=== PATIENT | female | born 1945 | race Caucasian/White ===

== ENCOUNTER → 2016-08-10 | Outpatient (REF) | payer MEDICARE, BC ==
[2016-08-10 14:53] LABS: IMMUNOGLOBULIN G 451 MG/DL (681-1648); IMMUNOGLOBULIN M 24.3 MG/DL (40-230); TOTAL PROTEIN 5.6 GM/DL (6.4-8.2)
[2016-08-12 00:06] LABS: FREE KAPPA LIGHT CHAINS SERUM 25.12 mg/L (3.30-19.40); FREE LAMBDA LIGHT CHAINS SERUM 28.45 mg/L (5.71-26.30); KAPPA/LAMBDA RATIO SERUM 0.88 (0.26-1.65)
[2016-08-12 13:59] LABS: ALBUMIN 3.52 GM/DL (3.29-5.55); ALBUMIN % 62.8 % (55.8-66.1)
== END ==
LOC: M LAB REF 13:21
PROVIDERS: ATTEND Internal Medicine Medical Oncology
DX: C90.00 Multiple myeloma not having achieved remission (principal)

== ENCOUNTER → 2016-10-12 | Outpatient (CLI) | payer MEDICARE, BC ==
[~2016-10-12] MED LIST: LIDOCAINE 2% MDV 20 ML VIAL As Ordered ONE
--- NOTE | 2016-10-12 17:25 | REPKIM ---
CLINICAL HISTORY: Patient with ESRD presents with a tunneled right IJ hemodialysis catheter. Patient has functioning left upper arm AVF. The referring nephrology service has requested to remove the TDC because it is no longer needed. PROCEDURE PERFORMED: Right IJ Tunneled Dialysis Catheter Removal INTERVENTIONALIST: Dr. Juanjose Cruz CONSENT: The risks, benefits and alternatives to the procedure were explained to the patient and informed written consent was obtained. MEDICATION: Local Lidocaine 2% EBL: 5 mL PROCEDURE/FINDINGS: The patient was brought to the interventional radiology suite and placed in the supine position with head of bed elevated. Time out procedure was performed. The area was prepped and draped in a usual sterile fashion. Local anesthesia was administered subcutaneously to the catheter exit site using 2% Lidocaine. The catheter cuff was bluntly dissected free from the surrounding soft tissues. The catheter was removed, inspected and confirmed to be removed in its entirety. Hemostasis was achieved by manual compression. A sterile dressing was applied. The patient tolerated the procedure well with no immediate complications. No imaging was used. Dr. Cruz was present. IMPRESSION: Tunneled dialysis catheter removal as discussed above. cc: Petey Mccallum MD MTDD
== END | disposition home or self-care (01) ==
LOC: M IRPRO 12:09
DX: Z45.2 Encounter for adjustment and management of vascular access device (principal); N18.6 End stage renal disease

== ENCOUNTER → 2016-10-28 | Outpatient (CLI) | payer MEDICARE, BC ==
--- NOTE | 2016-10-29 07:49 | RADONC ---
RADIATION ONCOLOGY CONSULTATION NOTE: DATE: 10/28/2016 CHART NO: [id number] DIAGNOSIS: Multiple myeloma. ECOG PERFORMANCE STATUS: 1 Ms. Morton is a very pleasant 71-year-old white female with the diagnosis of multiple myeloma who is presenting to us today for consideration of palliative radiation therapy to her lower back. HISTORY OF PRESENT ILLNESS: The patient was in her usual state of health but was found to have developed a 10-pound weight loss and fatigue in the spring. In December of 2015, she was found to be in acute renal failure with a creatinine over 10. Subsequent workup including a bone marrow biopsy revealed a monoclonal protein and plasma cell involvement. She was diagnosed with multiple myeloma and has started treatment with Velcade. She developed some peripheral neuropathy in March 2016 and Velcade was discontinued. She has since been treated with Revlimid and dexamethasone. The patient is continuing with dialysis. More recently she began developing some low back pain and a skeletal survey done at [facility] on 10/07/2016 showed lytic lesions at the L1 and L4 vertebral bodies. There are other lytic lesions throughout the skeletal system. She is now being referred for consideration of palliative radiation therapy. PAST MEDICAL HISTORY: The patient's past medical history is positive for hypertension and of course the above-mentioned kidney failure. She also has some hypothyroidism. ALLERGIES: The patient is allergic to SOMA. SOCIAL HISTORY: The patient does not smoke cigarettes nor abuse alcohol. FAMILY HISTORY: The patient's family history is positive for a mother with lung cancer and a father with kidney cancer. REVIEW OF SYSTEMS: The patient's review of systems is positive for a 75 pound weight loss over the past 6 months to a year. She has pain in the low back and left hip. Her review of systems is otherwise noncontributory. She denies nausea, vomiting, fevers, chills, night sweats, diplopia, headaches, anxiety or depression, anorexia, weight loss, visual disturbances, chest pain, urinary or bowel difficulties, bone pain, or neurological problems. PHYSICAL EXAMINATION: The patient is a well-developed, well-nourished female in no acute distress. HEENT exam is normocephalic, atraumatic. Extraocular movements are intact. There is no palpable cervical, supraclavicular, infraclavicular, axillary, or inguinal lymphadenopathy present. Lungs are clear to auscultation and percussion. Heart has a regular rate and rhythm. Abdomen is benign with no hepatosplenomegaly, masses, or tenderness. Skeletal examination reveals no tenderness to pressure or percussion of the bony skeleton. Extremities reveal no clubbing, cyanosis, or edema. Neurologic exam is grossly intact, as is the remainder of the physical examination. ASSESSMENT: Ms. Morton is presenting to us today for consideration of palliative radiation therapy to her spinal column from multiple myeloma. Clearly the patient is a candidate for this treatment and I have so informed her. I have discussed with the patient in detail the potential benefits as well as possible acute and chronic sequelae of external beam radiation therapy. We have discussed logistics of treatment planning, simulation and subsequent fractionated daily radiation treatments. I have scheduled the patient for the next available simulation slot and radiation treatments will begin subsequently. Thank you for allowing us to participate in the care of this very pleasant woman. If I could be of any further assistance or provide you with any information, please feel free to contact me anytime. As always warm regards, cc: Juliocesar Hernandez MD *Dr. Killian Balbuena, [facility] *Vinny Roy MD
--- NOTE | 2016-11-02 09:16 | RADONC ---
RADIATION ONCOLOGY SIMULATION NOTE DATE: 11/02/2016 CHART NUMBER: [id number]. Ms. Morton was taken to the CT scan for CT simulation of her spinal field. CT was accomplished without difficulty or discomfort. Radiation treatment planning is underway and radiation treatments will begin subsequently. An immobilization device was created and will be used throughout the course of treatment. It was also done without difficulty or discomfort. I was physically present throughout the course CT simulation.
== END ==
LOC: M ONCR 10:13
PROVIDERS: ATTEND Radiology Radiation Oncology
DX: C90.00 Multiple myeloma not having achieved remission (principal)

== ENCOUNTER 2016-11-02 10:26 | Outpatient (RCR) | payer MEDICARE, BC | END 2016-11-05 | LOC: M ONCR 10:26 | PROVIDERS: ATTEND Radiology Radiation Oncology | DX: C50.411 Malignant neoplasm of upper-outer quadrant of right female breast (principal) ==

== ENCOUNTER → 2016-11-02 | Outpatient (CLI) | payer MEDICARE, BC | LOC: M RAD 08:52 | PROVIDERS: ATTEND Radiology Radiation Oncology | DX: C90.00 Multiple myeloma not having achieved remission (principal) ==

== ENCOUNTER 2016-11-08 08:03 | Outpatient (RCR) | payer MEDICARE, BC ==
--- NOTE | 2016-11-16 06:30 | RADONC ---
RADIATION ONCOLOGY PROGRESS NOTE DATE: 11/15/2016 CHART NUMBER: [id number]. PROGRESS NOTE: Ms. Morton is presently a dose of 600 cGy to her lower spine and was last treated on 11/12/2016. She was not treated a secondary to machine breakdown. The patient reports today that she has been tolerating her treatments quite well with no complaints related to her radiation therapy. She is having no new back discomfort except on exam when she gets off the table. REVIEW OF SYSTEMS: The patient's review of systems is positive for continued back pain but is otherwise noncontributory. Denies nausea, vomiting, fevers, chills, night sweats, diplopia, headaches, anxiety or depression, anorexia, weight loss, visual disturbances, chest pain, urinary or bowel difficulties, bone pain, or neurological problems. PHYSICAL EXAMINATION: The patient's skin is in good condition with no evidence of radiation change present. There is no moist or dry desquamation. The remainder of her physical exam remains unchanged. Ms. Morton is tolerating treatments quite well and radiation will continue as scheduled.
--- NOTE | 2016-11-22 14:09 | RADONC ---
RADIATION ONCOLOGY PROGRESS NOTE DATE: 11/22/2016 CHART NUMBER: [id number] Ms. Morton is presently at a dose of 2100 cGy to her spine and is tolerating treatments quite well at this point with no complaints related to her radiation therapy. She has no increased back pain. She continues to have some back pain. The patient's review of systems is positive for back pain but is otherwise noncontributory. Denies nausea, vomiting, fevers, chills, night sweats, diplopia, headaches, anxiety or depression, anorexia, weight loss, visual disturbances, chest pain, urinary or bowel difficulties, bone pain, or neurological problems. PHYSICAL EXAMINATION: The patient's skin is in good condition with no evidence of radiation change present. There is no moist or dry desquamation. The remainder of her physical exam remains unchanged. Ms. Morton is tolerating treatments quite well and radiation will continue as scheduled.
--- NOTE | 2016-11-24 07:40 | RADONC ---
RADIATION ONCOLOGY TREATMENT SUMMARY DATE: 11/23/2016 CHART NUMBER: [id number] DIAGNOSIS: Multiple myeloma. ECOG PERFORMANCE STATUS: 1. TREATMENT SUMMARY: Ms. Morton is a very pleasant 71-year-old white female with the diagnosis of multiple myeloma who presented to us for consideration of palliative radiation therapy to her low back. We treated the patient to her low back from the level of T12-L5 for a total dose of 2400 cGy delivered in eight fractions of 300 cGy each over 12 elapsed days from 11/11/2016 through 11/23/2016. The patient's spine was treated on a linear accelerator utilizing an 18 MV photon beam via a single posterior field prescribed to a depth of 8 cm. Ms. Morton tolerated her treatments quite well and was able to complete therapy as prescribed without interruption. I have scheduled the patient to see me again in 1 month for further followup. She will also continue to be followed by her other physicians as well. cc: Juliocesar Hernandez MD *Dr. Killian Balbuena, [facility] *Vinny Roy MD
== END 2016-12-05 ==
LOC: M ONCR 08:03
PROVIDERS: ATTEND Radiology Radiation Oncology
DX: C90.00 Multiple myeloma not having achieved remission (principal)

== ENCOUNTER → 2016-11-09 | Outpatient (REF) | payer MEDICARE, BC ==
[2016-11-09 14:26] LABS: IMMUNOGLOBULIN A 52.7 MG/DL (70-400); IMMUNOGLOBULIN G 373 MG/DL (681-1648); TOTAL PROTEIN 5.2 GM/DL (6.4-8.2)
[2016-11-09 14:29] LABS: IMMUNOGLOBULIN M 18.2 MG/DL (40-230)
[2016-11-10 12:58] LABS: ALBUMIN 3.36 GM/DL (3.29-5.55); ALBUMIN % 64.6 % (55.8-66.1); GAMMA GLOBULIN % 7.7 % (11.1-18.8)
[2016-11-11 00:08] LABS: FREE KAPPA LIGHT CHAINS SERUM 24.09 mg/L (3.30-19.40); FREE LAMBDA LIGHT CHAINS SERUM 25.12 mg/L (5.71-26.30); KAPPA/LAMBDA RATIO SERUM 0.96 (0.26-1.65)
== END ==
LOC: M LAB REF 12:56
PROVIDERS: ATTEND Internal Medicine Medical Oncology
DX: C90.00 Multiple myeloma not having achieved remission (principal)

== ENCOUNTER → 2016-11-16 | Outpatient (CLI) | payer MEDICARE, BC ==
--- NOTE | 2016-11-16 13:20 | REP ---
Right lower extremity Duplex Doppler venous ultrasound: Real time compression and duplex Doppler interrogation of the right lower extremity deep venous system is performed. The right common femoral, superficial femoral and popliteal veins are fully compressible with transducer pressure and demonstrate normal spontaneous and phasic flow, without evidence of deep venous thrombosis. Impression: No evidence of deep venous thrombosis of the right lower extremity femoral popliteal venous system. Signed by Main Segundo MD 11/16/2016 01:13 P
== END ==
LOC: M RAD 12:21
PROVIDERS: ATTEND Internal Medicine Medical Oncology
DX: M79.604 Pain in right leg (principal)

== ENCOUNTER → 2016-12-07 | Outpatient (REF) | payer MEDICARE, BC | LOC: M LAB REF 17:04 | PROVIDERS: ATTEND Internal Medicine Medical Oncology | DX: C90.00 Multiple myeloma not having achieved remission (principal) ==

== ENCOUNTER → 2016-12-07 | Outpatient (REF) | payer MEDICARE, BC ==
[2016-12-07 19:41] LABS: TOTAL PROTEIN 5.4 GM/DL (6.4-8.2)
[2016-12-10 11:01] LABS: ALBUMIN 3.59 GM/DL (3.29-5.55); ALBUMIN % 66.5 % (55.8-66.1); GAMMA GLOBULIN % 6.9 % (11.1-18.8)
== END ==
LOC: M LAB REF 17:04
PROVIDERS: ATTEND Internal Medicine Medical Oncology
DX: C43.9 Malignant melanoma of skin, unspecified (principal)

== ENCOUNTER → 2016-12-22 | Outpatient (CLI) | payer MEDICARE, BC ==
--- NOTE | 2016-12-23 06:36 | RADONC ---
RADIATION ONCOLOGY FOLLOWUP NOTE DATE: 12/22/2016 CHART NUMBER: [id number] DIAGNOSIS: Multiple myeloma. ECOG PERFORMANCE STATUS: 1. FOLLOWUP NOTE: Ms. Morton is a very pleasant 71-year-old white female with the diagnosis of multiple myeloma who is presenting to us today for routine followup visit 1 month post completion of palliative radiation therapy to her spine. The patient presents today reporting that she is doing quite well with no complaints at this time related to her radiation therapy. She reports no bone pain. She continues with her dialysis secondary to renal failure. The patient's review of systems is positive for dialysis requirement but is otherwise noncontributory. Denies nausea, vomiting, fevers, chills, night sweats, diplopia, headaches, anxiety or depression, anorexia, weight loss, visual disturbances, chest pain, urinary or bowel difficulties, bone pain, or neurological problems. PHYSICAL EXAMINATION: The patient is a well-developed, well-nourished 71-year-old in no acute distress. HEENT exam is normocephalic, atraumatic. Extraocular movements are intact. There is no palpable cervical, supraclavicular, infraclavicular, axillary, or inguinal lymphadenopathy present. Lungs are clear to auscultation and percussion. Heart has a regular rate and rhythm. Abdomen is benign with no hepatosplenomegaly, masses, or tenderness. Skeletal examination reveals no tenderness to pressure or percussion of the bony skeleton. Extremities reveal no clubbing, cyanosis, or edema. Neurologic exam is grossly intact, as is the remainder of the physical examination. ASSESSMENT: The patient is clinically stable at this point with no remaining pain. In light of the fact that she is being followed and managed so closely by her medical oncologist, Dr. Hernandez, I have discharged her from our followup except on a p.r.n. basis. cc: Juliocesar Hernandez MD *Dr. Killian Balbuena, [facility] *Vinny Roy MD
== END ==
LOC: M ONCR 14:29
PROVIDERS: ATTEND Radiology Radiation Oncology
DX: C90.00 Multiple myeloma not having achieved remission (principal)

== ENCOUNTER → 2018-11-30 | Outpatient (REF) | payer MEDICARE, BC ==
[~2018-11-30] MED LIST changes: +AMLO5TAB6 PO; +ASPI81TA26 PO; +B-122500 PO; +CINA30TA4 PO; +DULO30CA47 PO; +IBUP200C25 PO; +KION15SU PO; +LEVO100T5 PO; -LIDOCAINE 2% MDV 20 ML VIAL As Ordered ONE; +RENATAB6 PO; +ROCA0.25 PO; +ROPI0.253 PO; +SEVE800T3 PO; +TUMS750C22 PO
--- NOTE | 2018-11-30 15:42 | REP ---
Reading of outside studies: Skeletal survey: 20 views from [facility] dated November 15, 2018. History: Followup multiple myeloma. Comparison radiographs [facility] January 10, 2016. There is also a comparison skeletal survey from October 07, 2016 done at [facility]. Skeletal findings. There is no bony calvarial lytic lesion. Mandible appears intact. The thoracic and lumbar vertebral body heights are preserved. No definite vertebral lesion is seen. There is a radiolucent area in the left ischium on pelvic image but this is unchanged from October 07, 2016. No definite new femur lesion is seen on either side. No new humeral lesion is seen. Impression: No new myelomatous lesion is appreciated. Electronically Signed by Laith Sanchez MD 11/30/2018 04:26 P
== END ==
LOC: M RAD 13:49
PROVIDERS: ATTEND Internal Medicine Hematology & Oncology
DX: Z85.79 Personal history of other malignant neoplasms of lymphoid, hematopoietic and related tissues (principal)

== ENCOUNTER → 2018-12-12 | Outpatient (REF) | payer MEDICARE, BC ==
[2018-12-12 13:53] LABS: TOTAL PROTEIN,RANDOM URINE 26.9 MG/DL (0.0-12.0); URINE TOTAL PROTEIN 26.9 MG/DL (0-12)
[2018-12-14 13:05] LABS: UPEP INTERPRETATION NO M-SPIKE NOTED; URINE VOLUME 2100 ML
== END ==
LOC: M LAB REF 11:50
PROVIDERS: ATTEND Internal Medicine Hematology & Oncology
DX: C90.00 Multiple myeloma not having achieved remission (principal); D50.8 Other iron deficiency anemias

== ENCOUNTER → 2018-12-19 | Outpatient (CLI) | payer MEDICARE, BC ==
[~2018-12-19] MED LIST changes: +VITA-157 PO
--- NOTE | 2018-12-19 15:55 | REP ---
CT of the chest without IV contrast: There are no comparison studies. There are the following lung nodules: Image 39, left upper lobe, 4 mm. Image 57, left lower lobe, 5 mm. Image 57, right middle lobe lateral segment, 7 mm. Image 59, right lower lobe, 5 mm. Image 71, left lower lobe, 3 mm. 374, right lower lobe, 6 mm. There are no acute infiltrates or pleural effusions. No mediastinal lymph node enlargement is identified. No axillary lymph node enlargement is identified. In the absence of IV contrast the study is insensitive for hilar lymph node enlargement. Cardiac size is enlarged. There is no pericardial effusion. The visualized unenhanced upper abdominal contents are unremarkable except for possible renal cortical atrophy of the visualized portion of the left kidney. There is a 2.2 cm lucent lesion in the T7 vertebral body. This could be a bone cyst or a lytic lesion. There is questionably a lucency in the L2 vertebral body versus Schmorl's node, only partially included. There are lucencies versus osteoporosis in the humeral heads bilaterally, only partially included. Impression: Multiple lung nodules as identified. Lucent skeletal lesions as identified. No infiltrates or pleural effusions. Cardiomegaly. Possible cortical atrophy of the visualized upper pole of the left kidney. The Electronically Signed by Main Shabazz MD 12/19/2018 03:46 P
== END ==
LOC: M RAD 14:29
PROVIDERS: ATTEND Internal Medicine Hematology & Oncology
DX: R91.1 Solitary pulmonary nodule (principal); M89.9 Disorder of bone, unspecified

== ENCOUNTER → 2019-04-17 | Outpatient (REF) | payer MEDICARE, BC ==
[~2019-04-17] MED LIST changes: +AMLO10TA5 PO; +SYNT137T7 PO
[2019-04-17 16:30] LABS: TOTAL VOLUME, URINE 2200 ML
[2019-04-17 16:49] LABS: TOTAL PROTEIN 24 HOUR URINE 783.2 MG/24HR (50-150); TOTAL PROTEIN,RANDOM URINE 35.6 MG/DL (0.0-12.0); URINE TOTAL PROTEIN 35.3 MG/DL (0-12); URINE TOTAL PROTEIN 35.6 MG/DL (0-12)
[2019-04-20 08:11] LABS: UPEP INTERPRETATION NO M-SPIKE NOTED; URINE VOLUME 2200 ML
== END ==
LOC: M LAB REF 15:21
PROVIDERS: ATTEND Student in an Organized Health Care Education/Training Program
DX: C90.00 Multiple myeloma not having achieved remission (principal)

== ENCOUNTER → 2019-05-08 | Outpatient (CLI) | payer MEDICARE, BC ==
--- NOTE | 2019-05-08 14:27 | REP ---
CT of the chest for follow up of lung nodules: Comparison is 12/19/2018. There are the following lung nodules: Image 41, left upper lobe, 3 mm, previously 4 mm. Image 55, right middle lobe lateral segment, 7 mm, unchanged. Image 56, left lower lobe, 5 mm, unchanged. Image 56, right lower lobe, 5 mm, unchanged. Image 60, right lower lobe, 6 mm, also present previously in retrospect, unchanged. Image 62, right lower lobe, 6 mm, also present previously in retrospect, unchanged. Image 71, right lower lobe, 4 mm, 6 mm previously. Image 71, left lower lobe, 3 mm, 3 mm previously. No new nodules are identified. There are no infiltrates. No pleural effusions. There is curvilinear parenchymal scarring in the lower lobes bilaterally, unchanged. The unenhanced thoracic aorta is unremarkable. Cardiac size is normal. There is no mediastinal or axillary lymphadenopathy. The study is insensitive for hilar adenopathy in the absence of IV contrast. Upper abdomen: The visualized portion of the left renal upper pole appears atrophic. This is unchanged. The visualized portions of the unenhanced liver, pancreas and spleen are unremarkable. The adrenals are unremarkable. The lucencies in the T7 and L2 vertebral bodies are unchanged. Impression: There are multiple lung nodules, unchanged. There are no new lung nodules. There are no acute infiltrates or pleural effusions. There is cardiomegaly, unchanged. Lucent lesions in the T7 and L2 are unchanged. Possible left renal upper pole cortical atrophy, unchanged. The kidneys are not visualized in entirety. Electronically Signed by Main Shabazz MD 05/08/2019 02:18 P
== END ==
LOC: M RAD 10:55
PROVIDERS: ATTEND Internal Medicine Pulmonary Disease
DX: R91.8 Other nonspecific abnormal finding of lung field (principal); I51.7 Cardiomegaly

== ENCOUNTER → 2020-05-29 | Outpatient (CLI) | payer MEDICARE, BC ==
[~2020-05-29] MED LIST changes: -AMLO10TA5 PO; +AMLO1TAB24 PO; +AMLO1TAB25 PO; -AMLO5TAB6 PO; +ATEN25TA PO; +AURY1TAB PO; +DULO1CAP4 PO; +LEVO125T41 PO; +LOKE10PA PO
--- NOTE | 2020-05-29 10:45 | REP ---
INDICATION: ABN FINDING OF LUNG COMPARISON: 05/08/2019, 12/19/2018 TECHNIQUE: Axial noncontrast images from the thoracic inlet to the upper abdomen with coronal and sagittal reformations. This CT examination was performed using the following dose reduction techniques: Automated exposure control, adjustment of mA and/or kv according to the patient's size, and use of iterative reconstruction technique. FINDINGS: The lung mark demonstrate few scattered bilateral noncalcified pulmonary nodules which either remained stable or have slightly decreased in size as compared to prior examinations. No new or enlarged nodules are identified. Underlying stable chronic interstitial changes and minimal scattered fibrosis/scarring remains unchanged. The tracheobronchial tree is patent. There is no effusion. There is no pneumothorax. Evaluation of the mediastinum demonstrates atherosclerotic changes to the thoracic aorta and coronary arteries along with cardiomegaly. No pericardial effusion. No significant obvious adenopathy noted. Musculoskeletal structures again demonstrate degenerative changes and stable lucent lesion in T7 and L1. IMPRESSION: 1. Pulmonary nodules are again identified and have either decreased in size or remained stable. No new or enlarged nodules or mass lesion appreciated. No acute consolidation or effusion. No significant adenopathy. 2. Atherosclerotic disease and cardiomegaly. 3. Stable lucent lesions within T7 and L1 <Electronically signed by Jake Montero > 05/29/20 104
== END ==
LOC: M RAD 09:14
PROVIDERS: ATTEND Internal Medicine Pulmonary Disease
DX: R91.8 Other nonspecific abnormal finding of lung field (principal); I51.7 Cardiomegaly

== ENCOUNTER → 2022-01-21 | Outpatient (CLI) | payer MEDICARE, BC ==
[~2022-01-21] MED LIST changes: -VITA-157 PO; +VITAE40CA PO
[2022-01-21 11:24] LABS: BASO % 0.7 % (0.0-1.0); EOS # 0.2 10^3/uL (0.0-0.5); EOS % 3.7 % (0.0-3.0); HEMATOCRIT 32.1 % (36.0-47.0); HEMOGLOBIN 10.7 g/dl (12.0-15.5); LYMPH # 0.7 10^3/uL (1.5-5.0); LYMPH % 16.6 % (24.0-44.0); MEAN CORPUSCULAR HEMOGLOBIN 32.5 pg (27.0-33.0); MEAN CORPUSCULAR HGB CONC 33.3 g/dl (32.0-36.5); MEAN CORPUSCULAR VOLUME 97.6 fl (80.0-96.0); MONO # 0.5 10^3/uL (0.0-0.8); MONO % 10.5 % (2.0-8.0); NEUTROPHILS # 2.9 10^3/uL (1.5-8.5); NEUTROPHILS % 68.3 % (36.0-66.0); PLATELET COUNT, AUTOMATED 226 10^3/uL (150-450); RED BLOOD COUNT 3.29 10^6/uL (4.00-5.40); WHITE BLOOD COUNT 4.3 10^3/uL (4.0-10.0)
[2022-01-21 11:55] LABS: ALBUMIN 3.2 GM/DL (3.2-5.2); BILIRUBIN,TOTAL 0.8 MG/DL (0.2-1.0); CREATININE FOR GFR 6.44 MG/DL (0.55-1.30); GLOMERULAR FILTRATION RATE 6.7 (>39); TOTAL PROTEIN 6.5 GM/DL (6.4-8.2)
== END ==
LOC: M LAB 10:52 → M RAD 10:52
PROVIDERS: ATTEND Specialist
DX: C90.00 Multiple myeloma not having achieved remission (principal)

== ENCOUNTER → 2024-01-19 | Outpatient (CLI) | payer MEDICARE ==
[~2024-01-19] MED LIST changes: +LEVO137T2 PO; -ROPI0.253 PO; +ROPI5TAB19 PO
== END ==
LOC: M CARPUL 10:40
PROVIDERS: ATTEND Internal Medicine Cardiovascular Disease
DX: I35.0 Nonrheumatic aortic (valve) stenosis (principal)

== ENCOUNTER 2024-06-25 14:46 | Inpatient (IN) | payer MEDICARE ==
[2024-06-25 15:53] VITALS: BP 128/61; TEMP 97.6; O2SAT 98
[2024-06-25] MEDS ORDERED: DEXTROSE 50% 50ML SYRINGE IV PRN (16:00)
[2024-06-25] MEDS ORDERED: GLUCOSE 4 GM CHEW PO PRN (16:00)
[2024-06-25] MEDS ORDERED: GLUCAGON INJ 1MG VIAL SC PRN (16:00)
[2024-06-25 16:39] LABS: HEMATOCRIT 29.4 % (36.0-47.0); HEMOGLOBIN 9.7 g/dl (12.0-15.5); PLATELET COUNT, AUTOMATED 272 10^3/uL (150-450); RED BLOOD COUNT 2.94 10^6/uL (4.00-5.40); WHITE BLOOD COUNT 8.2 10^3/uL (4.0-10.0)
[2024-06-25] MEDS ORDERED: HEPARIN 1,000UNITS/ML 10ML VIAL (FOR RADIOLOGY & DIALYSIS ONLY) IV PRN (16:50)
[2024-06-25] MEDS ORDERED: LIDOCAINE 1% SDV 5ML VIAL SC PRN (16:50)
[2024-06-25] MEDS ORDERED: SODIUM CHLORIDE 0.9% 1000 ML IV PRN (16:50)
[2024-06-25 17:00] LABS: THYROID STIMULATING HORMONE 10.302 uIU/ML (0.55-4.78)
[2024-06-25] MEDS ORDERED: ACETAMINOPHEN 325 MG TAB PO PRN (17:00)
[2024-06-25] MEDS ORDERED: IPRATROPIUM 0.5MG/ALBUTEROL 2.5MG INH SOL UD 3ML (DUONEB) NEB PRN (17:00)
[2024-06-25 17:23] LABS: ALBUMIN 3.1 G/DL (3.2-5.2); BILIRUBIN,TOTAL 0.9 MG/DL (0.3-1.2); CALCIUM LEVEL 9.6 MG/DL (8.3-10.6); CREATININE FOR GFR 9.76 MG/DL (0.55-1.30); GLOMERULAR FILTRATION RATE 4.1 (>32); POTASSIUM SERUM 5.7 MMOL/L (3.5-5.1); TOTAL PROTEIN 6.5 G/DL (5.7-8.2)
[2024-06-25] MEDS: INSULIN LISPRO (NovoLOG) PER UNIT SC SCH ×2 (17:30→21:00)
[2024-06-25] MEDS ORDERED: LEVO125T4 PO (17:37)
[2024-06-25 17:39] LABS: PROCALCITONIN 0.29 ng/ml
[2024-06-25] MEDS ORDERED: HOME MED LIST COMPLETE! XX SCH (17:40)
[2024-06-25] MEDS: (RENVELA) SEVELAMER **CARBONate** 800 MG TAB PO SCH (18:00)
[2024-06-25 18:06] LABS: HEPATITIS B CORE ANTIBODY IGM NEGATIVE (NEGATIVE); HEPATITIS B SURFACE ANTIBODY POSITIVE (POSITIVE); HEPATITIS B SURFACE ANTIGEN NEGATIVE (NEGATIVE); HEPATITIS C VIRUS ABY INDEX 0.02 INDEX (<0.8)
[2024-06-25] MEDS: HEPARIN 1,000UNITS/ML 10ML VIAL (FOR RADIOLOGY & DIALYSIS ONLY) XX SCH (19:06)
[2024-06-25 21:37] VITALS: BP 115/74; TEMP 96.9; O2SAT 94
[2024-06-25 22:37] VITALS: BP 125/62; O2SAT 100
[2024-06-25] MEDS: HEPARIN SOD (PORCINE) 5000UNITS/ML 1ML VIAL/SYRINGE SQ SCH (23:35)
[2024-06-25] MEDS: ONDANSETRON 4MG 2ML VIAL IV ONE (23:36)
[2024-06-25] MEDS: cefTRIAXone SOD 2 GM in DEXTROSE 5% (D5W) ADV/MINI-BAG 50 ML IV SCH (23:36)
[2024-06-26] VITALS (8 sets, daily range): BP systolic 97–110; BP diastolic 55–75; TEMP 97.6–98.5; O2SAT 90–97
[2024-06-26] MEDS: DOXYCYCLINE HYCLATE 100MG TABLET PO SCH (00:34)
[2024-06-26] MEDS: atenoloL 25 MG TAB PO ONE (00:36)
[2024-06-26] MEDS: LEVOTHYROXINE 125MCG TABLET (0.125MG) PO SCH (05:38)
[2024-06-26 06:36] LABS: BASO % 0.6 % (0.0-1.0); EOS # 0.3 10^3/uL (0.0-0.5); EOS % 4.5 % (0.0-3.0); HEMATOCRIT 28.1 % (36.0-47.0); HEMOGLOBIN 9.3 g/dl (12.0-15.5); LYMPH # 0.6 10^3/uL (1.5-5.0); LYMPH % 7.9 % (24.0-44.0); MEAN CORPUSCULAR HEMOGLOBIN 33.8 pg (27.0-33.0); MEAN CORPUSCULAR HGB CONC 33.1 g/dl (32.0-36.5); MEAN CORPUSCULAR VOLUME 102.2 fl (80.0-96.0); MONO # 0.5 10^3/uL (0.0-0.8); MONO % 7.5 % (2.0-8.0); NEUTROPHILS # 5.5 10^3/uL (1.5-8.5); NEUTROPHILS % 78.9 % (36.0-66.0); PLATELET COUNT, AUTOMATED 227 10^3/uL (150-450); RED BLOOD COUNT 2.75 10^6/uL (4.00-5.40); WHITE BLOOD COUNT 6.9 10^3/uL (4.0-10.0)
[2024-06-26 07:01] LABS: CREATININE FOR GFR 5.15 MG/DL (0.55-1.30); GLOMERULAR FILTRATION RATE 8.6 (>32); POTASSIUM SERUM 4.5 MMOL/L (3.5-5.1)
[2024-06-26] MEDS ORDERED: SODIUM CHLORIDE 0.9% 1000 ML IV PRN (07:15)
[2024-06-26] MEDS ORDERED: HEPARIN 1,000UNITS/ML 10ML VIAL (FOR RADIOLOGY & DIALYSIS ONLY) IV PRN (07:15)
[2024-06-26] MEDS ORDERED: HEPARIN 1,000UNITS/ML 10ML VIAL (FOR RADIOLOGY & DIALYSIS ONLY) XX SCH (07:15)
[2024-06-26] MEDS ORDERED: LIDOCAINE 1% SDV 5ML VIAL SC PRN (07:15)
[2024-06-26] MEDS: atenoloL 25 MG TAB PO SCH (12:51)
[2024-06-26] MEDS: amLODIPine 5 MG TAB PO SCH (12:52)
[2024-06-26] MEDS: DULoxetine 20MG CAP (CYMBALTA) PO SCH (12:55)
[2024-06-27 03:23] VITALS: BP 117/73; TEMP 98.5; O2SAT 91
[2024-06-27] MEDS ORDERED: HEPARIN 1,000UNITS/ML 10ML VIAL (FOR RADIOLOGY & DIALYSIS ONLY) IV PRN (06:00)
[2024-06-27] MEDS ORDERED: SODIUM CHLORIDE 0.9% 1000 ML IV PRN (06:00)
[2024-06-27] MEDS ORDERED: LIDOCAINE 1% SDV 5ML VIAL SC PRN (06:00)
[2024-06-27 06:27] LABS: CALCIUM LEVEL 9.3 MG/DL (8.3-10.6); CREATININE FOR GFR 6.78 MG/DL (0.55-1.30); GLOMERULAR FILTRATION RATE 6.2 (>32); POTASSIUM SERUM 4.6 MMOL/L (3.5-5.1)
[2024-06-27 07:49] VITALS: BP 106/73; TEMP 98.2; O2SAT 90
[2024-06-27 07:53] LABS: Estimated Ave Glu(eAG) 5.2 mmol/L; Hemoglobin A1c 4.9 (<5.7)
[2024-06-27] MEDS: ONDANSETRON 4MG 2ML VIAL IV PRN (07:58)
[2024-06-27] MEDS: HEPARIN 1,000UNITS/ML 10ML VIAL (FOR RADIOLOGY & DIALYSIS ONLY) XX SCH (09:29)
[2024-06-27 12:46] VITALS: BP 136/70; TEMP 97.8; O2SAT 94
[2024-06-27 16:04] VITALS: BP 103/52; TEMP 98.4; O2SAT 93
[2024-06-27 21:37] VITALS: BP 106/66; TEMP 97.4; O2SAT 93
[2024-06-27 23:27] VITALS: BP 100/59; TEMP 97; O2SAT 93
[2024-06-28 05:12] VITALS: BP 110/56; TEMP 97.5; O2SAT 94
[2024-06-28 06:25] LABS: CALCIUM LEVEL 9.8 MG/DL (8.3-10.6); CREATININE FOR GFR 4.79 MG/DL (0.55-1.30); GLOMERULAR FILTRATION RATE 9.3 (>32); POTASSIUM SERUM 4.6 MMOL/L (3.5-5.1)
[2024-06-28 08:02] VITALS: BP 103/62; TEMP 97.8; O2SAT 93
[2024-06-28 08:59] VITALS: BP 103/62
[2024-06-28] MEDS ORDERED: PROBCAP14 PO (11:07)
[2024-06-28] MEDS ORDERED: CEFD1CAP9 PO (11:07)
[2024-06-28] MEDS ORDERED: DOXY100T PO (11:07)
[2024-06-28] MEDS ORDERED: AMLO1TAB25 PO (11:07)
[2024-07-02 17:12] LABS: MYCOPLASMA PNEUMONIAE IGG 2.96 (<=0.90)
== END 2024-06-28 15:27 | disposition home health service (06) | DRG 640 ==
LOC: M PCU 15:40
PROVIDERS: ADMIT Student in an Organized Health Care Education/Training Program; ATTEND Student in an Organized Health Care Education/Training Program
PROC: 5A1D70Z Performance of Urinary Filtration, Intermittent, Less than 6 Hours Per Day (ICD-10-PCS; principal; 2024-06-25)
PROC: B246ZZZ Ultrasonography of Right and Left Heart (ICD-10-PCS; 2024-06-25)
DX: E87.70 Fluid overload, unspecified (principal); N18.6 End stage renal disease; J18.9 Pneumonia, unspecified organism; J96.01 Acute respiratory failure with hypoxia; C90.00 Multiple myeloma not having achieved remission; I12.0 Hypertensive chronic kidney disease with stage 5 chronic kidney disease or end stage renal disease; N25.81 Secondary hyperparathyroidism of renal origin; E03.9 Hypothyroidism, unspecified; D63.1 Anemia in chronic kidney disease; E87.5 Hyperkalemia; R53.81 Other malaise; M19.90 Unspecified osteoarthritis, unspecified site; Z79.890 Hormone replacement therapy; Z79.899 Other long term (current) drug therapy; Z88.8 Allergy status to other drugs, medicaments and biological substances; Z85.850 Personal history of malignant neoplasm of thyroid; Z91.158 Patient's noncompliance with renal dialysis for other reason; Z99.2 Dependence on renal dialysis

== ENCOUNTER → 2024-10-02 | Outpatient (CLI) | payer MEDICARE ==
[~2024-10-02] MED LIST changes: +AMIO200T49; +CEFD1CAP9 PO; +DOXY100T PO; +ELIQ2.5T; +LEVO125T4 PO; +LIDOCAINE 1% MDV 20ML VIAL As Ordered ONE; +PROBCAP14 PO; +SEVE800T13; +TORS100T
[2024-10-02 12:23] VITALS: TEMP 99.4
[2024-10-02 12:32] LABS: BASO # 0.1 10^3/uL (0.0-0.2); BASO % 0.7 % (0.0-1.0); EOS # 0.2 10^3/uL (0.0-0.5); EOS % 2.5 % (0.0-3.0); HEMATOCRIT 26.5 % (36.0-47.0); HEMOGLOBIN 8.4 g/dl (12.0-15.5); LYMPH # 0.4 10^3/uL (1.5-5.0); LYMPH % 6.5 % (24.0-44.0); MEAN CORPUSCULAR HEMOGLOBIN 33.9 pg (27.0-33.0); MEAN CORPUSCULAR HGB CONC 31.7 g/dl (32.0-36.5); MEAN CORPUSCULAR VOLUME 106.9 fl (80.0-96.0); MONO # 0.5 10^3/uL (0.0-0.8); MONO % 7.3 % (2.0-8.0); NEUTROPHILS # 5.6 10^3/uL (1.5-8.5); NEUTROPHILS % 82.9 % (36.0-66.0); PLATELET COUNT, AUTOMATED 231 10^3/uL (150-450); RED BLOOD COUNT 2.48 10^6/uL (4.00-5.40); WHITE BLOOD COUNT 6.8 10^3/uL (4.0-10.0)
[2024-10-02 13:25] VITALS: BP 132/68; O2SAT 96
== END ==
LOC: M IRPRO 11:46
PROVIDERS: ATTEND Internal Medicine Medical Oncology
DX: C90.00 Multiple myeloma not having achieved remission (principal)

== ENCOUNTER → 2024-10-09 | Outpatient (CLI) | payer MEDICARE ==
[~2024-10-09] MED LIST changes: -LIDOCAINE 1% MDV 20ML VIAL As Ordered ONE
== END ==
LOC: M PLARAD 10:29
PROVIDERS: ATTEND Internal Medicine Medical Oncology
DX: C90.00 Multiple myeloma not having achieved remission (principal)
CPT/HCPCS: 78815; A9552

== ENCOUNTER 2025-05-23 17:19 | Inpatient (IN) | payer MEDICARE ==
[~2025-05-23 17:19] MED LIST changes: -AMIO200T49; +AMIO200T54 PO; -ELIQ2.5T; +ELIQ2.5T PO; +RENATAB5 PO; -SEVE800T13; +SEVE800T13 PO; -TORS100T; +TORS100T PO
[2025-05-23 19:30] VITALS: BP 149/67; TEMP 97.2; O2SAT 96
[2025-05-23] MEDS ORDERED: MOM 30 ML SUSPENSION UDC PO PRN (20:10)
[2025-05-23] MEDS ORDERED: MAALOX 30 ML SUSP *UDC PO PRN (20:10)
[2025-05-23] MEDS: DOCUSATE SODIUM 100 MG CAPSULE PO SCH (21:00)
[2025-05-23 21:02] LABS: PLATELET COUNT, AUTOMATED 123 10^3/uL (150-450)
[2025-05-23 21:22] LABS: INR 1.06
[2025-05-23 21:27] LABS: FREE T4 1.11 NG/DL (0.89-1.76)
[2025-05-23 21:28] LABS: LYMPHOCYTES 2 % (16-44); MONOCYTES 3 % (0-5); NEUTROPHILS 89 % (28-66)
[2025-05-23 21:29] LABS: PLATELET ESTIMATE NORMAL (NORMAL)
[2025-05-23 21:36] LABS: ALT/SGPT 26.0 U/L (7.0-40); AST/SGOT 41.0 U/L (<34); C REACTIVE PROTEIN QUANTITATIV 21.5 MG/DL (<1.0); CALCIUM LEVEL 8.5 MG/DL (8.3-10.6); CARBON DIOXIDE LEVEL 19.0 MMOL/L (20-31); CHLORIDE LEVEL 93.0 MMOL/L (98-107); CREATININE FOR GFR 8.15 MG/DL (0.55-1.30); GLOMERULAR FILTRATION RATE 4.6 (>32); POTASSIUM SERUM 4.8 MMOL/L (3.5-5.1); SODIUM LEVEL 129.0 MMOL/L (136-145)
[2025-05-24] VITALS (12 sets, daily range): BP systolic 94–123; BP diastolic 52–78; TEMP 96.8–98.6; O2SAT 89–94
[2025-05-24] MEDS: ACETAMINOPHEN *IV* 1,000 MG in IV 1 EA IV ONE (00:18)
[2025-05-24] MEDS ORDERED: ONDANSETRON 4MG ORAL DISINTEGRATING TAB PO PRN (01:05)
[2025-05-24 01:52] LABS: MAGNESIUM LEVEL 2.1 MG/DL (1.8-2.4)
[2025-05-24] MEDS: ACETAMINOPHEN 325 MG TAB PO PRN (04:26)
[2025-05-24] MEDS: PIPERACILLIN/TAZOBACTAM SOD 2.25 GM in DEXTROSE 5% (D5W) ADV/MINI-BAG 50 ML IV SCH (04:26)
[2025-05-24 05:52] LABS: BASO # 0.0 10^3/uL (0.0-0.2); BASO % 0.1 % (0.0-1.0); EOS # 0.0 10^3/uL (0.0-0.5); EOS % 0.0 % (0.0-3.0); LYMPH # 0.4 10^3/uL (1.5-5.0); LYMPH % 3.2 % (24.0-44.0); MONO # 0.4 10^3/uL (0.0-0.8); MONO % 3.6 % (2.0-8.0); NEUTROPHILS # 11.1 10^3/uL (1.5-8.5); NEUTROPHILS % 92.4 % (36.0-66.0); PLATELET COUNT, AUTOMATED 122 10^3/uL (150-450)
[2025-05-24 06:40] LABS: CALCIUM LEVEL 8.2 MG/DL (8.3-10.6); CARBON DIOXIDE LEVEL 20.0 MMOL/L (20-31); CHLORIDE LEVEL 91.0 MMOL/L (98-107); CREATININE FOR GFR 8.57 MG/DL (0.55-1.30); GLOMERULAR FILTRATION RATE 4.3 (>32); MAGNESIUM LEVEL 2.2 MG/DL (1.8-2.4); PHOSPHORUS LEVEL 7.8 MG/DL (2.4-5.1); POTASSIUM SERUM 5.6 MMOL/L (3.5-5.1); SODIUM LEVEL 128.0 MMOL/L (136-145)
[2025-05-24] MEDS ORDERED: AMLO-751 PO (07:55)
[2025-05-24] MEDS ORDERED: CALC0.5C6 PO (07:55)
[2025-05-24] MEDS ORDERED: TENO1TAB3 PO (07:55)
[2025-05-24] MEDS ORDERED: ACET-897 PO (07:55)
[2025-05-24] MEDS ORDERED: PANT40TA29 PO (07:55)
[2025-05-24] MEDS ORDERED: HOME MED LIST COMPLETE! XX SCH (08:00)
[2025-05-24 08:31] LABS: ALT/SGPT 28 U/L (7.0-40); AST/SGOT 43 U/L (<34); CALCIUM LEVEL 7.9 MG/DL (8.3-10.6); CARBON DIOXIDE LEVEL 22 MMOL/L (20-31); CHLORIDE LEVEL 90 MMOL/L (98-107); CREATININE FOR GFR 8.63 MG/DL (0.55-1.30); GLOMERULAR FILTRATION RATE 4.3 (>32); POTASSIUM SERUM 6.0 MMOL/L (3.5-5.1); SODIUM LEVEL 126 MMOL/L (136-145)
[2025-05-24] MEDS ORDERED: DOXYCYCLINE HYCLATE 100 MG TABLET PO SCH (09:00)
[2025-05-24] MEDS ORDERED: LIDOCAINE 1% SDV 5 ML VIAL SC PRN (09:15)
[2025-05-24] MEDS ORDERED: HEPARIN 1,000 UNITS/ML 10 ML VIAL (FOR RADIOLOGY & DIALYSIS ONLY) IV PRN (09:15)
[2025-05-24] MEDS ORDERED: SODIUM CHLORIDE 0.9% 1000 ML IV PRN (09:15)
[2025-05-24] MEDS ORDERED: HEPARIN 1,000 UNITS/ML 10 ML VIAL (FOR RADIOLOGY & DIALYSIS ONLY) XX SCH (09:15)
[2025-05-24] MEDS: DOXYCYCLINE HYCLATE 100 MG in DEXTROSE 5% (D5W) MINI-BAG PLU 100 ML IV SCH (09:35)
[2025-05-24] MEDS: PANTOPRAZOLE 40MG VIAL IV SCH (09:35)
[2025-05-24 10:41] LABS: HEPATITIS B SURFACE ANTIBODY POSITIVE (POSITIVE); HEPATITIS C VIRUS ABY INDEX < 0.02 INDEX (<0.8)
[2025-05-24] MEDS: DARBEPOETIN 100 MCG/0.5 ML *DIALYSIS* SYRINGE IV SCH (10:56)
[2025-05-24] MEDS ORDERED: ALBUTEROL SULFATE 2.5 MG/0.5 ML INH CONCENTRATE NEB SOLN NEB PRN (11:05)
[2025-05-24] MEDS: IPRATROPIUM 0.5 MG/ALBUTEROL 2.5 MG INH SOL UD 3 ML NEB SCH (11:35)
[2025-05-24] MEDS: SEVELAMER *CARBONate* 800 MG TAB PO SCH (12:30)
[2025-05-24 15:19] LABS: BASO # 0.0 10^3/uL (0.0-0.2); BASO % 0.1 % (0.0-1.0); EOS # 0.0 10^3/uL (0.0-0.5); EOS % 0.0 % (0.0-3.0); LYMPH # 0.4 10^3/uL (1.5-5.0); LYMPH % 3.5 % (24.0-44.0); MONO # 0.6 10^3/uL (0.0-0.8); MONO % 4.6 % (2.0-8.0); NEUTROPHILS # 11.2 10^3/uL (1.5-8.5); NEUTROPHILS % 91.3 % (36.0-66.0); PLATELET COUNT, AUTOMATED 107 10^3/uL (150-450)
[2025-05-24] MEDS: HYDROCORTISONE 100 MG/2 ML VIAL IV ONE (15:39)
[2025-05-24] MEDS: LEVOTHYROXINE 100 MCG (0.1 MG) 5ML SDV PF (SOLUTION FORM) IV ONE (17:10)
[2025-05-24] MEDS: CALCITRIOL 0.25 MCG CAP (S0169) PO SCH (17:11)
[2025-05-24 20:27] LABS: ALT/SGPT 35.0 U/L (7.0-40); AST/SGOT 57.0 U/L (<34); CALCIUM LEVEL 8.3 MG/DL (8.3-10.6); CARBON DIOXIDE LEVEL 30.0 MMOL/L (20-31); CHLORIDE LEVEL 92.0 MMOL/L (98-107); CREATININE FOR GFR 3.77 MG/DL (0.55-1.30); GLOMERULAR FILTRATION RATE 11.5 (>32); POTASSIUM SERUM 3.7 MMOL/L (3.5-5.1); SODIUM LEVEL 133.0 MMOL/L (136-145)
[2025-05-24] MEDS ORDERED: VANCOMYCIN HCL 1,000 MG, VIAL MATE ADAPTER 1 EACH in NS 250 ML IV ONE (21:00)
[2025-05-24] MEDS: VANCOMYCIN HCL 1,000 MG, VIAL MATE ADAPTER 1 EACH in NS 250 ML IV ONE (22:54)
[2025-05-25 03:55] VITALS: BP 132/60; TEMP 98.1; O2SAT 91
[2025-05-25 04:56] LABS: KETONE, URINE AUTO RFX NEGATIVE (NEGATIVE); NITRITE, URINE AUTO RFX NEGATIVE (NEGATIVE); RBC, URINE AUTO RFX 2 /HPF (0-3); SQUAM EPITHELIAL CELL UR AURFX 1 /HPF (0-6); WBC, URINE AUTO RFX 1 /HPF (0-3)
[2025-05-25 05:25] LABS: LEUKOCYTE ESTERASE UR AUTO RFX TRACE (NEGATIVE)
[2025-05-25 06:07] LABS: BASO # 0.0 10^3/uL (0.0-0.2); BASO % 0.0 % (0.0-1.0); EOS # 0.0 10^3/uL (0.0-0.5); EOS % 0.0 % (0.0-3.0); LYMPH # 0.4 10^3/uL (1.5-5.0); LYMPH % 3.8 % (24.0-44.0); MONO # 0.6 10^3/uL (0.0-0.8); MONO % 6.2 % (2.0-8.0); NEUTROPHILS # 8.8 10^3/uL (1.5-8.5); NEUTROPHILS % 89.3 % (36.0-66.0); PLATELET COUNT, AUTOMATED 113 10^3/uL (150-450)
[2025-05-25 06:20] LABS: VANCOMYCIN RANDOM 19.1 UG/ML
[2025-05-25 06:22] LABS: CPK CREATINE PHOSPHOKINASE 135.0 U/L (34-145)
[2025-05-25 06:24] LABS: ALT/SGPT 32.0 U/L (7.0-40); AST/SGOT 52.0 U/L (<34); CALCIUM LEVEL 8.5 MG/DL (8.3-10.6); CARBON DIOXIDE LEVEL 29.0 MMOL/L (20-31); CHLORIDE LEVEL 93.0 MMOL/L (98-107); CK-MB VALUE MASS 6.4 NG/ML (<3.6); CREATININE FOR GFR 4.53 MG/DL (0.55-1.30); GLOMERULAR FILTRATION RATE 9.2 (>32); MAGNESIUM LEVEL 2.0 MG/DL (1.8-2.4); MB/CK RELATIVE INDEX 4.74 (< OR =4); PHOSPHORUS LEVEL 6.0 MG/DL (2.4-5.1); POTASSIUM SERUM 4.2 MMOL/L (3.5-5.1); SODIUM LEVEL 133.0 MMOL/L (136-145)
[2025-05-25] MEDS ORDERED: HEPARIN 1,000 UNITS/ML 10 ML VIAL (FOR RADIOLOGY & DIALYSIS ONLY) XX SCH (07:30)
[2025-05-25] MEDS ORDERED: LIDOCAINE 1% SDV 5 ML VIAL SC PRN (07:30)
[2025-05-25] MEDS ORDERED: SODIUM CHLORIDE 0.9% 1000 ML IV PRN (07:30)
[2025-05-25] MEDS ORDERED: HEPARIN 1,000 UNITS/ML 10 ML VIAL (FOR RADIOLOGY & DIALYSIS ONLY) IV PRN (07:30)
[2025-05-25 07:45] VITALS: BP 130/65; TEMP 98; O2SAT 92
[2025-05-25] MEDS: LEVOTHYROXINE 100 MCG (0.1 MG) 5ML SDV PF (SOLUTION FORM) IV SCH (08:51)
[2025-05-25] MEDS: PANTOPRAZOLE 40MG VIAL IV SCH (08:51)
[2025-05-25] MEDS ORDERED: VANCOMYCIN HCL 1,000 MG, VIAL MATE ADAPTER 1 EACH in NS 250 ML IV SCH ×2 (09:00→16:00)
[2025-05-25 12:10] VITALS: BP 114/56; TEMP 98.3; O2SAT 94
[2025-05-25 16:30] VITALS: BP 119/62; TEMP 98.2; O2SAT 93
[2025-05-25] MEDS: SUCRALFATE SUSP 1GM/10ML UD PO SCH (17:53)
[2025-05-25 19:23] VITALS: BP 114/56; TEMP 99.1; O2SAT 94
[2025-05-26] VITALS (9 sets, daily range): BP systolic 116–144; BP diastolic 57–71; TEMP 97.9–99.2; O2SAT 92–98
[2025-05-26] MEDS: LEVOTHYROXINE 125 MCG TABLET (0.125 MG) PO SCH (05:25)
[2025-05-26 05:52] LABS: BASO # 0.0 10^3/uL (0.0-0.2); BASO % 0.0 % (0.0-1.0); EOS # 0.0 10^3/uL (0.0-0.5); EOS % 0.4 % (0.0-3.0); LYMPH # 0.8 10^3/uL (1.5-5.0); LYMPH % 8.1 % (24.0-44.0); MONO # 0.5 10^3/uL (0.0-0.8); MONO % 5.3 % (2.0-8.0); NEUTROPHILS # 7.9 10^3/uL (1.5-8.5); NEUTROPHILS % 85.5 % (36.0-66.0); PLATELET COUNT, AUTOMATED 116 10^3/uL (150-450)
[2025-05-26 06:19] LABS: ALT/SGPT 25.0 U/L (7.0-40); AST/SGOT 35.0 U/L (<34); CALCIUM LEVEL 7.9 MG/DL (8.3-10.6); CARBON DIOXIDE LEVEL 28.0 MMOL/L (20-31); CHLORIDE LEVEL 92.0 MMOL/L (98-107); CK-MB VALUE MASS 1.5 NG/ML (<3.6); CREATININE FOR GFR 5.78 MG/DL (0.55-1.30); GLOMERULAR FILTRATION RATE 6.9 (>32); MAGNESIUM LEVEL 2.1 MG/DL (1.8-2.4); PHOSPHORUS LEVEL 4.8 MG/DL (2.4-5.1); POTASSIUM SERUM 3.8 MMOL/L (3.5-5.1); SODIUM LEVEL 132.0 MMOL/L (136-145)
[2025-05-26 06:20] LABS: CPK CREATINE PHOSPHOKINASE 28.0 U/L (34-145); MB/CK RELATIVE INDEX 5.35 (< OR =4)
[2025-05-26] MEDS ORDERED: LIDOCAINE 2% 100 MG/5 ML SDV (FOR ANES.) As Ordered ONE (07:49)
[2025-05-26] MEDS: AMIODARONE 200 MG TAB PO SCH (10:32)
[2025-05-26 19:09] LABS: PLATELET COUNT, AUTOMATED 106 10^3/uL (150-450)
[2025-05-27 00:26] VITALS: BP 121/57; TEMP 98.7; O2SAT 95
[2025-05-27 04:11] VITALS: BP 123/59; TEMP 98; O2SAT 97
[2025-05-27 05:53] LABS: BASO # 0.0 10^3/uL (0.0-0.2); BASO % 0.1 % (0.0-1.0); EOS # 0.3 10^3/uL (0.0-0.5); EOS % 2.6 % (0.0-3.0); LYMPH # 0.6 10^3/uL (1.5-5.0); LYMPH % 5.7 % (24.0-44.0); MONO # 0.8 10^3/uL (0.0-0.8); MONO % 7.5 % (2.0-8.0); NEUTROPHILS # 8.3 10^3/uL (1.5-8.5); NEUTROPHILS % 82.9 % (36.0-66.0); PLATELET COUNT, AUTOMATED 102 10^3/uL (150-450)
[2025-05-27] MEDS ORDERED: HEPARIN 1,000 UNITS/ML 10 ML VIAL (FOR RADIOLOGY & DIALYSIS ONLY) XX SCH (06:00)
[2025-05-27] MEDS ORDERED: HEPARIN 1,000 UNITS/ML 10 ML VIAL (FOR RADIOLOGY & DIALYSIS ONLY) IV PRN (06:00)
[2025-05-27] MEDS ORDERED: LIDOCAINE 1% SDV 5 ML VIAL SC PRN (06:00)
[2025-05-27] MEDS ORDERED: SODIUM CHLORIDE 0.9% 1000 ML IV PRN (06:00)
[2025-05-27 06:23] LABS: CK-MB VALUE MASS 1.4 NG/ML (<3.6)
[2025-05-27 06:25] LABS: VANCOMYCIN RANDOM 12.8 UG/ML
[2025-05-27 06:27] LABS: CPK CREATINE PHOSPHOKINASE 18.0 U/L (34-145); MB/CK RELATIVE INDEX 7.77 (< OR =4)
[2025-05-27 06:29] LABS: ALT/SGPT 23.0 U/L (7.0-40); AST/SGOT 24.0 U/L (<34); CALCIUM LEVEL 8.1 MG/DL (8.3-10.6); CARBON DIOXIDE LEVEL 26.0 MMOL/L (20-31); CHLORIDE LEVEL 93.0 MMOL/L (98-107); CREATININE FOR GFR 6.77 MG/DL (0.55-1.30); GLOMERULAR FILTRATION RATE 5.7 (>32); MAGNESIUM LEVEL 2.1 MG/DL (1.8-2.4); PHOSPHORUS LEVEL 4.7 MG/DL (2.4-5.1); POTASSIUM SERUM 3.8 MMOL/L (3.5-5.1); SODIUM LEVEL 132.0 MMOL/L (136-145)
[2025-05-27 07:35] VITALS: BP 128/59; TEMP 98; O2SAT 97
[2025-05-27] MEDS: VANCOMYCIN HCL 500 MG in DEXTROSE 5% (D5W) MINI-BAG PLU 100 ML IV ONE (07:53)
[2025-05-27 13:11] VITALS: BP 158/73; TEMP 98; O2SAT 95
[2025-05-27 15:47] VITALS: BP 144/62; TEMP 98.8; O2SAT 95
[2025-05-27 19:39] VITALS: BP 120/59; TEMP 99.1; O2SAT 97
[2025-05-28] VITALS (8 sets, daily range): BP systolic 112–147; BP diastolic 56–70; TEMP 97.6–99; O2SAT 95–100
[2025-05-28 06:20] LABS: BASO # 0.0 10^3/uL (0.0-0.2); BASO % 0.1 % (0.0-1.0); EOS # 0.3 10^3/uL (0.0-0.5); EOS % 1.9 % (0.0-3.0); LYMPH # 0.6 10^3/uL (1.5-5.0); LYMPH % 4.6 % (24.0-44.0); MONO # 1.0 10^3/uL (0.0-0.8); MONO % 7.0 % (2.0-8.0); NEUTROPHILS # 11.7 10^3/uL (1.5-8.5); NEUTROPHILS % 85.4 % (36.0-66.0); PLATELET COUNT, AUTOMATED 141 10^3/uL (150-450)
[2025-05-28 06:36] LABS: CK-MB VALUE MASS < 1.0 NG/ML (<3.6)
[2025-05-28 06:40] LABS: CPK CREATINE PHOSPHOKINASE 17 U/L (34-145)
[2025-05-28 06:43] LABS: ALT/SGPT 20 U/L (7.0-40); AST/SGOT 23 U/L (<34); CALCIUM LEVEL 8.7 MG/DL (8.3-10.6); CARBON DIOXIDE LEVEL 24 MMOL/L (20-31); CHLORIDE LEVEL 96 MMOL/L (98-107); CREATININE FOR GFR 3.67 MG/DL (0.55-1.30); GLOMERULAR FILTRATION RATE 11.9 (>32); MAGNESIUM LEVEL 1.9 MG/DL (1.8-2.4); PHOSPHORUS LEVEL 2.7 MG/DL (2.4-5.1); POTASSIUM SERUM 4.4 MMOL/L (3.5-5.1); SODIUM LEVEL 131 MMOL/L (136-145)
[2025-05-28 08:49] LABS: THYROGLOBULIN ANTIBODY > 500.0 U/ML (<60.0)
[2025-05-28] MEDS: DOXYCYCLINE HYCLATE 100 MG TABLET PO SCH (08:59)
[2025-05-28] MEDS: PANTOPRAZOLE 40MG TAB PO SCH (08:59)
[2025-05-28] MEDS ORDERED: HEPARIN 1,000 UNITS/ML 10 ML VIAL (FOR RADIOLOGY & DIALYSIS ONLY) IV PRN (09:00)
[2025-05-28] MEDS ORDERED: SODIUM CHLORIDE 0.9% 1000 ML IV PRN (09:00)
[2025-05-28 09:52] LABS: THRYOGLOBULIN ANTIBODIES (ATA) 294 IU/mL (< or = 1); THYROGLOBULIN QUANTITATIVE < 0.1 ng/mL (2.8-40.9)
[2025-05-28] MEDS: HEPARIN 1,000 UNITS/ML 10 ML VIAL (FOR RADIOLOGY & DIALYSIS ONLY) XX SCH (13:54)
[2025-05-29 04:08] VITALS: BP 141/67; TEMP 98.7; O2SAT 95
[2025-05-29 05:36] LABS: BASO # 0.0 10^3/uL (0.0-0.2); BASO % 0.2 % (0.0-1.0); EOS # 0.6 10^3/uL (0.0-0.5); EOS % 5.0 % (0.0-3.0); LYMPH # 0.6 10^3/uL (1.5-5.0); LYMPH % 5.8 % (24.0-44.0); MONO # 1.0 10^3/uL (0.0-0.8); MONO % 8.9 % (2.0-8.0); NEUTROPHILS # 8.7 10^3/uL (1.5-8.5); NEUTROPHILS % 79.2 % (36.0-66.0); PLATELET COUNT, AUTOMATED 134 10^3/uL (150-450)
[2025-05-29] MEDS ORDERED: LIDOCAINE 1% SDV 5 ML VIAL SC PRN (06:00)
[2025-05-29] MEDS ORDERED: HEPARIN 1,000 UNITS/ML 10 ML VIAL (FOR RADIOLOGY & DIALYSIS ONLY) XX SCH (06:00)
[2025-05-29] MEDS ORDERED: HEPARIN 1,000 UNITS/ML 10 ML VIAL (FOR RADIOLOGY & DIALYSIS ONLY) IV PRN (06:00)
[2025-05-29] MEDS ORDERED: SODIUM CHLORIDE 0.9% 1000 ML IV PRN (06:00)
[2025-05-29 06:04] LABS: CALCIUM LEVEL 8.5 MG/DL (8.3-10.6); CARBON DIOXIDE LEVEL 24.0 MMOL/L (20-31); CHLORIDE LEVEL 92.0 MMOL/L (98-107); CREATININE FOR GFR 5.16 MG/DL (0.55-1.30); GLOMERULAR FILTRATION RATE 7.9 (>32); POTASSIUM SERUM 5.0 MMOL/L (3.5-5.1); SODIUM LEVEL 127.0 MMOL/L (136-145)
[2025-05-29 07:33] VITALS: BP 130/62; TEMP 98.2; O2SAT 98
[2025-05-29 08:09] VITALS: BP 144/66; TEMP 98.2; O2SAT 98
[2025-05-29 12:45] VITALS: BP 138/58; TEMP 98.7; O2SAT 98
[2025-05-29 15:50] VITALS: BP 138/52; TEMP 98; O2SAT 98
[2025-05-29 19:20] VITALS: BP 108/58; TEMP 97.9; O2SAT 91
[2025-05-30] VITALS (7 sets, daily range): BP systolic 119–147; BP diastolic 57–75; TEMP 97.3–98.7; O2SAT 92–95
[2025-05-30 05:32] LABS: BASO # 0.0 10^3/uL (0.0-0.2); BASO % 0.5 % (0.0-1.0); EOS # 0.5 10^3/uL (0.0-0.5); EOS % 6.5 % (0.0-3.0); LYMPH # 0.8 10^3/uL (1.5-5.0); LYMPH % 9.3 % (24.0-44.0); MONO # 0.9 10^3/uL (0.0-0.8); MONO % 10.7 % (2.0-8.0); NEUTROPHILS # 6.0 10^3/uL (1.5-8.5); NEUTROPHILS % 72.0 % (36.0-66.0); PLATELET COUNT, AUTOMATED 158 10^3/uL (150-450)
[2025-05-30 05:55] LABS: CALCIUM LEVEL 8.4 MG/DL (8.3-10.6); CARBON DIOXIDE LEVEL 26.0 MMOL/L (20-31); CHLORIDE LEVEL 97.0 MMOL/L (98-107); CREATININE FOR GFR 3.41 MG/DL (0.55-1.30); GLOMERULAR FILTRATION RATE 13.0 (>32); POTASSIUM SERUM 4.1 MMOL/L (3.5-5.1); SODIUM LEVEL 132.0 MMOL/L (136-145)
[2025-05-30] MEDS ORDERED: HEPARIN 1,000 UNITS/ML 10 ML VIAL (FOR RADIOLOGY & DIALYSIS ONLY) XX SCH (06:00)
[2025-05-30] MEDS ORDERED: SODIUM CHLORIDE 0.9% 1000 ML IV PRN (06:00)
[2025-05-30] MEDS ORDERED: HEPARIN 1,000 UNITS/ML 10 ML VIAL (FOR RADIOLOGY & DIALYSIS ONLY) IV PRN (06:00)
[2025-05-30] MEDS ORDERED: LIDOCAINE 1% SDV 5 ML VIAL SC PRN (06:00)
[2025-05-30 10:42] LABS: THRYOGLOBULIN ANTIBODIES (ATA) 243 IU/mL (< or = 1); THYROGLOBULIN QUANTITATIVE < 0.1 ng/mL (2.8-40.9)
[2025-05-30 12:22] LABS: IRON (FE) 22.0 UG/DL (50-170); PERCENT SATURATION 11.5 % (13.2-45.0)
[2025-05-31 06:59] VITALS: BP 146/69; TEMP 97.1; O2SAT 95
[2025-05-31 07:09] LABS: CALCIUM LEVEL 9.0 MG/DL (8.3-10.6); CARBON DIOXIDE LEVEL 24.0 MMOL/L (20-31); CHLORIDE LEVEL 95.0 MMOL/L (98-107); CREATININE FOR GFR 4.93 MG/DL (0.55-1.30); GLOMERULAR FILTRATION RATE 8.3 (>32); POTASSIUM SERUM 4.4 MMOL/L (3.5-5.1); SODIUM LEVEL 130.0 MMOL/L (136-145)
[2025-05-31] MEDS ORDERED: LIDOCAINE 1% SDV 5 ML VIAL SC PRN (07:10)
[2025-05-31] MEDS ORDERED: SODIUM CHLORIDE 0.9% 1000 ML IV PRN (07:10)
[2025-05-31] MEDS ORDERED: HEPARIN 1,000 UNITS/ML 10 ML VIAL (FOR RADIOLOGY & DIALYSIS ONLY) IV PRN (07:10)
[2025-05-31] MEDS: HEPARIN 1,000 UNITS/ML 10 ML VIAL (FOR RADIOLOGY & DIALYSIS ONLY) XX SCH (08:22)
[2025-05-31] MEDS: IRON SUCROSE 100 MG/5 ML VIAL IV SCH (08:59)
[2025-05-31 14:35] VITALS: BP 132/63; TEMP 97.4; O2SAT 94
[2025-05-31 20:09] VITALS: BP 126/65; TEMP 98.9; O2SAT 95
[2025-06-01 05:57] VITALS: BP 130/62; TEMP 98.3; O2SAT 94
[2025-06-01 08:00] VITALS: BP 111/53
[2025-06-01 08:32] LABS: CALCIUM LEVEL 9.2 MG/DL (8.3-10.6); CARBON DIOXIDE LEVEL 24.0 MMOL/L (20-31); CHLORIDE LEVEL 100.0 MMOL/L (98-107); CREATININE FOR GFR 3.45 MG/DL (0.55-1.30); GLOMERULAR FILTRATION RATE 12.8 (>32); POTASSIUM SERUM 4.6 MMOL/L (3.5-5.1); SODIUM LEVEL 135.0 MMOL/L (136-145)
[2025-06-01 14:00] VITALS: BP 120/68; TEMP 98.1; O2SAT 98
[2025-06-01 20:14] VITALS: BP 146/67; TEMP 97.6; O2SAT 96
[2025-06-02] MEDS: LEVOTHYROXINE 150 MCG TABLET (0.15 MG) PO SCH (05:10)
[2025-06-02 06:00] VITALS: BP 114/59; TEMP 97.2; O2SAT 97
[2025-06-02 08:26] LABS: CALCIUM LEVEL 9.1 MG/DL (8.3-10.6); CARBON DIOXIDE LEVEL 24.0 MMOL/L (20-31); CHLORIDE LEVEL 101.0 MMOL/L (98-107); CREATININE FOR GFR 5.22 MG/DL (0.55-1.30); GLOMERULAR FILTRATION RATE 7.8 (>32); POTASSIUM SERUM 4.6 MMOL/L (3.5-5.1); SODIUM LEVEL 136.0 MMOL/L (136-145)
[2025-06-02 14:00] VITALS: BP 131/60; TEMP 98.4; O2SAT 94
[2025-06-02 20:17] VITALS: BP 128/59; TEMP 97.8; O2SAT 96
[2025-06-03 05:21] VITALS: BP 127/58; TEMP 98; O2SAT 95
[2025-06-03] MEDS ORDERED: LIDOCAINE 1% SDV 5 ML VIAL SC PRN (06:00)
[2025-06-03] MEDS ORDERED: HEPARIN 1,000 UNITS/ML 10 ML VIAL (FOR RADIOLOGY & DIALYSIS ONLY) IV PRN (06:00)
[2025-06-03] MEDS ORDERED: HEPARIN 1,000 UNITS/ML 10 ML VIAL (FOR RADIOLOGY & DIALYSIS ONLY) XX SCH (06:00)
[2025-06-03] MEDS ORDERED: SODIUM CHLORIDE 0.9% 1000 ML IV PRN (06:00)
[2025-06-03 06:45] LABS: BASO # 0.1 10^3/uL (0.0-0.2); BASO % 1.1 % (0.0-1.0); EOS # 0.3 10^3/uL (0.0-0.5); EOS % 3.7 % (0.0-3.0); LYMPH # 0.9 10^3/uL (1.5-5.0); LYMPH % 10.9 % (24.0-44.0); MONO # 0.6 10^3/uL (0.0-0.8); MONO % 6.6 % (2.0-8.0); NEUTROPHILS # 6.6 10^3/uL (1.5-8.5); NEUTROPHILS % 77.1 % (36.0-66.0); PLATELET COUNT, AUTOMATED 233 10^3/uL (150-450)
[2025-06-03 07:11] LABS: CALCIUM LEVEL 9.1 MG/DL (8.3-10.6); CARBON DIOXIDE LEVEL 20.0 MMOL/L (20-31); CHLORIDE LEVEL 99.0 MMOL/L (98-107); CREATININE FOR GFR 6.49 MG/DL (0.55-1.30); GLOMERULAR FILTRATION RATE 6.0 (>32); POTASSIUM SERUM 4.8 MMOL/L (3.5-5.1); SODIUM LEVEL 132.0 MMOL/L (136-145)
[2025-06-03 12:33] VITALS: BP 109/56
[2025-06-03 14:00] VITALS: BP 108/57; TEMP 97; O2SAT 97
[2025-06-03] MEDS: BISACODYL 10 MG SUPP PR ONE (14:50)
[2025-06-03 20:40] VITALS: BP 133/66; TEMP 98.1; O2SAT 94
[2025-06-03] MEDS: SENNOSIDES/DOCUSATE SODIUM 8.6 MG/50MG TAB PO SCH (20:42)
[2025-06-04 05:11] VITALS: BP 128/68; TEMP 96.9; O2SAT 97
[2025-06-04 06:49] LABS: CALCIUM LEVEL 10.1 MG/DL (8.3-10.6); CARBON DIOXIDE LEVEL 28.0 MMOL/L (20-31); CHLORIDE LEVEL 98.0 MMOL/L (98-107); CREATININE FOR GFR 4.17 MG/DL (0.55-1.30); GLOMERULAR FILTRATION RATE 10.2 (>32); POTASSIUM SERUM 3.8 MMOL/L (3.5-5.1); SODIUM LEVEL 137.0 MMOL/L (136-145)
[2025-06-04 08:37] VITALS: BP 125/71; O2SAT 94
[2025-06-04 14:00] VITALS: BP 146/68; TEMP 96.7; O2SAT 97
[2025-06-04 20:00] VITALS: BP 115/56; TEMP 98.4; O2SAT 97
[2025-06-05] VITALS (7 sets, daily range): BP systolic 131–143; BP diastolic 60–65; TEMP 96.3–99; O2SAT 95–97
[2025-06-05] MEDS ORDERED: HEPARIN 1,000 UNITS/ML 10 ML VIAL (FOR RADIOLOGY & DIALYSIS ONLY) XX SCH (06:00)
[2025-06-05] MEDS ORDERED: HEPARIN 1,000 UNITS/ML 10 ML VIAL (FOR RADIOLOGY & DIALYSIS ONLY) IV PRN (06:00)
[2025-06-05] MEDS ORDERED: SODIUM CHLORIDE 0.9% 1000 ML IV PRN (06:00)
[2025-06-05] MEDS ORDERED: LIDOCAINE 1% SDV 5 ML VIAL SC PRN (06:00)
[2025-06-05] MEDS ORDERED: HEPARIN SOD 5000 UNITS/ML 1 ML VIAL/SYRINGE IV PRN (10:30)
[2025-06-05 11:42] LABS: PLATELET COUNT, AUTOMATED 258 10^3/uL (150-450)
[2025-06-05] MEDS: HEPARIN SOD 5000 UNITS/ML 1 ML VIAL/SYRINGE IV ONE (12:44)
[2025-06-05] MEDS: HEPARIN DRIP 25,000 UNITS in IV 1 EA IV SCH (12:49)
[2025-06-06] VITALS (9 sets, daily range): BP systolic 94–152; BP diastolic 48–72; TEMP 94.3–99.6; O2SAT 91–97
[2025-06-06 05:15] LABS: INR 1.06
[2025-06-06] MEDS: ALTEPLASE 2 MG/2 ML VIAL XX ONE (13:35)
[2025-06-06] MEDS: NS 250 ML IV SCH (13:35)
[2025-06-06] MEDS: ceFAZolin SODIUM 2 GM in DEXTROSE 5% (D5W) ADV/MINI-BAG 50 ML IV ONE (14:15)
[2025-06-06] MEDS: MIDAZOLAM INJ 2 MG/2 ML VIAL IV PRN (14:46)
[2025-06-06] MEDS: HEPARIN 1,000 UNITS/ML 10 ML VIAL (FOR RADIOLOGY & DIALYSIS ONLY) IV PRN (15:06)
[2025-06-06] MEDS: ISOVUE-300 61% 100 ML VIAL IV SCH (17:06)
[2025-06-06] MEDS: LIDOCAINE 1% MDV 20 ML VIAL SC SCH (17:07)
[2025-06-07] MEDS ORDERED: SODIUM CHLORIDE 0.9% 1000 ML IV PRN (06:00)
[2025-06-07] MEDS ORDERED: LIDOCAINE 1% SDV 5 ML VIAL SC PRN (06:00)
[2025-06-07] MEDS ORDERED: HEPARIN 1,000 UNITS/ML 10 ML VIAL (FOR RADIOLOGY & DIALYSIS ONLY) XX SCH (06:00)
[2025-06-07] MEDS ORDERED: HEPARIN 1,000 UNITS/ML 10 ML VIAL (FOR RADIOLOGY & DIALYSIS ONLY) IV PRN (06:00)
[2025-06-07 06:23] VITALS: BP 115/51; TEMP 98.3; O2SAT 97
[2025-06-07 13:58] LABS: FREE T4 1.14 NG/DL (0.89-1.76)
[2025-06-07 14:00] VITALS: BP 105/50; TEMP 96.8
[2025-06-07 23:05] VITALS: O2SAT 92
[2025-06-08 04:36] VITALS: BP 116/49; TEMP 98.4; O2SAT 96
[2025-06-08] MEDS ORDERED: HEPARIN 1,000 UNITS/ML 10 ML VIAL (FOR RADIOLOGY & DIALYSIS ONLY) IV PRN (07:25)
[2025-06-08] MEDS ORDERED: LIDOCAINE 1% SDV 5 ML VIAL SC PRN (07:25)
[2025-06-08] MEDS ORDERED: SODIUM CHLORIDE 0.9% 1000 ML IV PRN (07:25)
[2025-06-08] MEDS: HEPARIN 1,000 UNITS/ML 10 ML VIAL (FOR RADIOLOGY & DIALYSIS ONLY) XX SCH (09:13)
[2025-06-08 12:07] VITALS: BP 120/49; TEMP 96.5; O2SAT 96
[2025-06-08 14:00] VITALS: BP 109/49; TEMP 97.4; O2SAT 100
[2025-06-09 05:19] VITALS: BP 118/49; TEMP 97.3; O2SAT 94
[2025-06-10] VITALS (7 sets, daily range): BP systolic 123–146; BP diastolic 60–76; TEMP 97.2–98.4; O2SAT 96–98
[2025-06-10] MEDS ORDERED: SODIUM CHLORIDE 0.9% 1000 ML IV PRN (06:00)
[2025-06-10] MEDS ORDERED: HEPARIN 1,000 UNITS/ML 10 ML VIAL (FOR RADIOLOGY & DIALYSIS ONLY) IV PRN (06:00)
[2025-06-10] MEDS ORDERED: LIDOCAINE 1% SDV 5 ML VIAL SC PRN (06:00)
[2025-06-10] MEDS: HEPARIN 1,000 UNITS/ML 10 ML VIAL (FOR RADIOLOGY & DIALYSIS ONLY) XX SCH (09:13)
[2025-06-10] MEDS: BISACODYL 10 MG SUPP PR PRN (14:01)
[2025-06-10 14:39] LABS: BASO # 0.1 10^3/uL (0.0-0.2); BASO % 1.0 % (0.0-1.0); EOS # 0.5 10^3/uL (0.0-0.5); EOS % 9.1 % (0.0-3.0); LYMPH # 0.8 10^3/uL (1.5-5.0); LYMPH % 13.1 % (24.0-44.0); MONO # 0.4 10^3/uL (0.0-0.8); MONO % 6.9 % (2.0-8.0); NEUTROPHILS # 4.0 10^3/uL (1.5-8.5); NEUTROPHILS % 69.4 % (36.0-66.0); PLATELET COUNT, AUTOMATED 207 10^3/uL (150-450)
[2025-06-10 15:04] LABS: CALCIUM LEVEL 10.0 MG/DL (8.3-10.6); CARBON DIOXIDE LEVEL 28.0 MMOL/L (20-31); CHLORIDE LEVEL 104.0 MMOL/L (98-107); CREATININE FOR GFR 1.47 MG/DL (0.55-1.30); GLOMERULAR FILTRATION RATE 35.7 (>32); POTASSIUM SERUM 4.5 MMOL/L (3.5-5.1); SODIUM LEVEL 140.0 MMOL/L (136-145)
[2025-06-10] MEDS: MIRALAX *UNIT DOSE* 17 GM PACKET PO PRN (16:58)
[2025-06-11] VITALS (9 sets, daily range): BP systolic 137–157; BP diastolic 58–92; TEMP 96.9–97.8; O2SAT 94–98
[2025-06-11] MEDS: LEVOTHYROXINE 100 MCG TABLET (0.1 MG) PO SCH (05:30)
[2025-06-11] MEDS: LEVOTHYROXINE 75 MCG TABLET (0.075 MG) PO SCH (05:30)
[2025-06-11] MEDS ORDERED: LEVOTHYROXINE 75 MCG TABLET (0.075 MG) PO SCH (06:00)
[2025-06-11 07:43] LABS: BASO # 0.1 10^3/uL (0.0-0.2); BASO % 0.7 % (0.0-1.0); EOS # 0.5 10^3/uL (0.0-0.5); EOS % 6.2 % (0.0-3.0); LYMPH # 0.9 10^3/uL (1.5-5.0); LYMPH % 11.6 % (24.0-44.0); MONO # 0.5 10^3/uL (0.0-0.8); MONO % 6.9 % (2.0-8.0); NEUTROPHILS # 5.5 10^3/uL (1.5-8.5); NEUTROPHILS % 74.1 % (36.0-66.0); PLATELET COUNT, AUTOMATED 196 10^3/uL (150-450)
[2025-06-11] MEDS ORDERED: NS (Normal Saline) 0.9% 1,000 ML IV SCH (15:40)
[2025-06-12] MEDS ORDERED: HEPARIN 1,000 UNITS/ML 10 ML VIAL (FOR RADIOLOGY & DIALYSIS ONLY) XX SCH (06:00)
[2025-06-12] MEDS ORDERED: HEPARIN 1,000 UNITS/ML 10 ML VIAL (FOR RADIOLOGY & DIALYSIS ONLY) IV PRN (06:00)
[2025-06-12] MEDS ORDERED: SODIUM CHLORIDE 0.9% 1000 ML IV PRN (06:00)
[2025-06-12] MEDS ORDERED: LIDOCAINE 1% SDV 5 ML VIAL SC PRN (06:00)
[2025-06-12 06:31] VITALS: BP 152/71; TEMP 97.3; O2SAT 96
[2025-06-12 07:12] LABS: PLATELET COUNT, AUTOMATED 192 10^3/uL (150-450)
[2025-06-12 08:04] LABS: CALCIUM LEVEL 10.5 MG/DL (8.3-10.6); CARBON DIOXIDE LEVEL 23.0 MMOL/L (20-31); CHLORIDE LEVEL 102.0 MMOL/L (98-107); CREATININE FOR GFR 4.1 MG/DL (0.55-1.30); GLOMERULAR FILTRATION RATE 10.4 (>32); PHOSPHORUS LEVEL 4.3 MG/DL (2.4-5.1); POTASSIUM SERUM 6.0 MMOL/L (3.5-5.1); SODIUM LEVEL 135.0 MMOL/L (136-145)
[2025-06-12 12:10] VITALS: BP 151/70; TEMP 98.2; O2SAT 96
[2025-06-13 04:30] VITALS: BP 148/67; TEMP 98; O2SAT 98
[2025-06-13 07:51] VITALS: BP 145/69; TEMP 98.6; O2SAT 98
[2025-06-14 06:37] VITALS: BP 163/72; TEMP 98.2; O2SAT 94
[2025-06-14] MEDS ORDERED: SODIUM CHLORIDE 0.9% 1000 ML IV PRN (07:00)
[2025-06-14] MEDS ORDERED: HEPARIN 1,000 UNITS/ML 10 ML VIAL (FOR RADIOLOGY & DIALYSIS ONLY) XX SCH (07:00)
[2025-06-14] MEDS ORDERED: HEPARIN 1,000 UNITS/ML 10 ML VIAL (FOR RADIOLOGY & DIALYSIS ONLY) IV PRN (07:00)
[2025-06-14] MEDS ORDERED: LIDOCAINE 1% SDV 5 ML VIAL SC PRN (07:00)
[2025-06-15 05:44] VITALS: BP 125/58; TEMP 98.9; O2SAT 98
[2025-06-16 06:00] VITALS: BP 129/58; TEMP 100.3; O2SAT 99
[2025-06-16 17:17] LABS: FREE T4 0.69 NG/DL (0.89-1.76)
[2025-06-17] MEDS: LEVOTHYROXINE 100 MCG TABLET (0.1 MG) PO SCH (05:34)
[2025-06-17 06:00] VITALS: BP 143/63; TEMP 99.6; O2SAT 97
[2025-06-17] MEDS ORDERED: SODIUM CHLORIDE 0.9% 1000 ML IV PRN (06:00)
[2025-06-17] MEDS ORDERED: LIDOCAINE 1% SDV 5 ML VIAL SC PRN (06:00)
[2025-06-17] MEDS ORDERED: HEPARIN 1,000 UNITS/ML 10 ML VIAL (FOR RADIOLOGY & DIALYSIS ONLY) IV PRN (06:00)
[2025-06-17] MEDS ORDERED: HEPARIN 1,000 UNITS/ML 10 ML VIAL (FOR RADIOLOGY & DIALYSIS ONLY) XX SCH (06:00)
[2025-06-17] MEDS ORDERED: LEVO200T4 PO (11:25)
[2025-06-17] MEDS ORDERED: PANT40TA29 PO (11:25)
== END 2025-06-17 13:05 | DRG 853 ==
LOC: EEVIPCON 19:19 → M PCU 19:19 → M MS5PR 05-30 17:04
PROVIDERS: ADMIT Internal Medicine; ATTEND Internal Medicine
PROC: 5A1D70Z Performance of Urinary Filtration, Intermittent, Less than 6 Hours Per Day (ICD-10-PCS; 2025-05-24)
PROC: 30233N1 Transfusion of Nonautologous Red Blood Cells into Peripheral Vein, Percutaneous Approach (ICD-10-PCS; 2025-05-24)
PROC: 0DJ08ZZ Inspection of Upper Intestinal Tract, Via Natural or Artificial Opening Endoscopic (ICD-10-PCS; 2025-05-26)
PROC: B246ZZZ Ultrasonography of Right and Left Heart (ICD-10-PCS; 2025-05-27)
PROC: 05CA3ZZ Extirpation of Matter from Left Brachial Vein, Percutaneous Approach (ICD-10-PCS; 2025-06-06)
PROC: 057F3DZ Dilation of Left Cephalic Vein with Intraluminal Device, Percutaneous Approach (ICD-10-PCS; 2025-06-06)
PROC: 05783DZ Dilation of Left Axillary Vein with Intraluminal Device, Percutaneous Approach (ICD-10-PCS; 2025-06-06)
PROC: 05763DZ Dilation of Left Subclavian Vein with Intraluminal Device, Percutaneous Approach (ICD-10-PCS; 2025-06-06)
PROC: 05CF3ZZ Extirpation of Matter from Left Cephalic Vein, Percutaneous Approach (ICD-10-PCS; principal; 2025-06-06 14:00)
DX: A41.9 Sepsis, unspecified organism (principal); N18.6 End stage renal disease; J18.9 Pneumonia, unspecified organism; G93.41 Metabolic encephalopathy; J96.01 Acute respiratory failure with hypoxia; K29.71 Gastritis, unspecified, with bleeding; I50.43 Acute on chronic combined systolic (congestive) and diastolic (congestive) heart failure; C90.00 Multiple myeloma not having achieved remission; I24.89 Other forms of acute ischemic heart disease; N25.81 Secondary hyperparathyroidism of renal origin; D62 Acute posthemorrhagic anemia; I13.2 Hypertensive heart and chronic kidney disease with heart failure and with stage 5 chronic kidney disease, or end stage renal disease; E87.20 Acidosis, unspecified; E87.1 Hypo-osmolality and hyponatremia; N39.0 Urinary tract infection, site not specified; T82.868A Thrombosis due to vascular prosthetic devices, implants and grafts, initial encounter; E89.0 Postprocedural hypothyroidism; G89.4 Chronic pain syndrome; R11.2 Nausea with vomiting, unspecified; F41.1 Generalized anxiety disorder; E87.5 Hyperkalemia; N25.0 Renal osteodystrophy; D63.1 Anemia in chronic kidney disease; D63.0 Anemia in neoplastic disease; R53.1 Weakness; E87.70 Fluid overload, unspecified; I27.20 Pulmonary hypertension, unspecified; D50.9 Iron deficiency anemia, unspecified; R13.12 Dysphagia, oropharyngeal phase; R91.1 Solitary pulmonary nodule; K44.9 Diaphragmatic hernia without obstruction or gangrene; K59.00 Constipation, unspecified; I34.2 Nonrheumatic mitral (valve) stenosis; B95.2 Enterococcus as the cause of diseases classified elsewhere; Z85.850 Personal history of malignant neoplasm of thyroid; Z99.2 Dependence on renal dialysis; Z79.01 Long term (current) use of anticoagulants; Z95.2 Presence of prosthetic heart valve; Z95.810 Presence of automatic (implantable) cardiac defibrillator; Z79.899 Other long term (current) drug therapy; Z79.890 Hormone replacement therapy; Z88.8 Allergy status to other drugs, medicaments and biological substances